=== PATIENT | male | born 1965 | race Two or more races ===

== ENCOUNTER 2018-06-25 07:26 | Day surgery (SDC) | payer OTHER ==
[2018-06-25] VITALS (8 sets, daily range): BP systolic 109–126; BP diastolic 76–88
[~2018-06-25] VITALS: Ht 167.6 cm; Wt 95.3 kg
--- NOTE | 2018-06-25 06:47 | Anethesia Preoperative Eval ---
Anesthesia Pre-op PMH/ROS General Date of Evaluation: Jun 25, 2018 Time of Evaluation: 06:44 Anesthesiologist: destiny ASA Score: ASA 3 Mallampati Score Class I : Soft palate, uvula, fauces, pillars visible Class II: Soft palate, uvula, fauces visible Class III: Soft palate, base of uvula visible Class IV: Only hard plate visible Mallampati Classification: Class II Surgeon: rubina Diagnosis: gerd Surgical Procedure: egd Anesthesia History: none Social History: current smoker Family History: no anesthesia problems Allergies: Coded Allergies: No Known Allergies (Unverified , 06/25/18) Medications: see eMAR Patient NPO?: Yes Past Medical History Cardiovascular: Reports: HTN Gastrointestinal/Genitourinary: Reports: GERD Neurologic/Psychiatric: Reports: other - headache HEENT: Reports: other - multiple dental implants Musculoskeletal/Integumentary: Reports: other - work related back injury Other: obesity PSxH Narrative: cervical fusion, lumbar spine sx, Anesthesia Pre-op Phys. Exam Physician Exam Last Vital Signs Date Time Temp Pulse Resp B/P (MAP) Pulse Ox O2 Delivery O2 Flow Rate FiO2 06/25/18 08:07 Room Air 06/25/18 08:05 97.0 59 18 120/79 100 Constitutional: NAD Neurologic: CN 2-12 intact Cardiovascular: RRR Respiratory: CTA Gastrointestinal: S/NT/ND Airway Exam Mallampati Score: Class II MO: full Neck: supple TMD: 2fb ROM: full Teeth: missing Anesthesia Pre-op A/P Risk Assessment & Plan Assessment: asa3 Plan: mac Status Change Before Surgery: No Pre-Antibiotics Drug: Tyesha Frazier MD Jun 25, 2018 06:47
[~2018-06-25 07:26] MED LIST: Atropine Inj 1mg/10ml Syr IV PRN; DiphenhydrAMINE 50mg/ml Inj IVP PRN; GABAPENTIN300 MG ORAL; LR 1000ml 1,000 ML IVLG SCH; Midazolam 2mg/2ml Inj IVP PRN; TYLENOL EXTRA500 MG ORAL; fentaNYL 100 mcg/2 mL IV PRN
--- NOTE | 2018-06-25 08:56 | Short Stay Surgery H&P ---
History of Present Illness History of Present Illness Chief Complaint Heartburn and abdominal pains HPI Yon Roth is a 52 year old male who was admitted on for GERD/ abdominal pains Patient History Allergies: Coded Allergies: No Known Allergies (Unverified , 06/25/18) PAST MEDICAL HISTORY: (1) Hypertension (2) Hyperlipidemia (3) S/P discectomy (4) S/P cervical discectomy (5) S/P lumbar discectomy (6) S/P disc Medication History Scheduled PRN Acetaminophen* (Tylenol Extra Strength*), 500 MG ORAL Q6H PRN for Mild Pain/ Temp > 100.5, (Reported) Gabapentin* (Gabapentin*), 300 MG ORAL THREE TIMES A DAY PRN for For Pain, ( Reported) Review of Systems Cardiovascular: Reports: no symptoms Respiratory: Reports: no symptoms Skeletal: Reports: spinal disc disease, trauma Gastrointestinal: Reports: gastro esophageal reflux disease Genitourinary: Reports: no symptoms Neurologic: Reports: no symptoms Endocrine: Reports: no symptoms Hematologic: Reports: no symptoms Physical Exam Vital Signs Last Vital Signs Date Time Temp Pulse Resp B/P (MAP) Pulse Ox O2 Delivery O2 Flow Rate FiO2 06/25/18 08:07 Room Air 06/25/18 08:05 97.0 59 18 120/79 100 Skin: normal HENT: normal Heart: normal Lungs: normal Abdomen: abnormal Extremities: normal Genitourinary: normal Plan Plan of Care Upper GI endoscopy and biopsy Preop Interventions None Summary of Findings See the reports Attestation Are the patient's medical conditions optimized for surgery? Attestation Response: yes Yvon Johnson MD Jun 25, 2018 08:56
--- NOTE | 2018-06-25 08:57 | Pre-Procedure Note/Attestation ---
Pre-Procedure Note/Attestation Complete Prior to Procedure Planned Procedure: left Procedure Narrative: Examination of ghe upper GI tract by endoscope Indications for Procedure Pre-Operative Diagnosis: R/O Peptic ulcer/Gastritis Attestation I attest that I discussed the nature of the procedure; its benefits; risks and complications; and alternatives (and the risks and benefits of such alternatives ), prior to the procedure, with the patient (or the patient's legal branch sales and service representative). I attest that, if there was a reasonable possibility of needing a blood transfusion, the patient (or the patient's legal branch sales and service representative) was given the [facility] standardized written summary, pursuant to the [place] Blood Safety Act ([place] Health and Safety Code # 1645, as amended). I attest that I re-evaluated the patient just prior to the surgery and that there has been no change in the patient's H&P, except as documented below: Yvon Johnson MD Jun 25, 2018 08:57
--- NOTE | 2018-06-25 09:08 | Endoscopy Procedure Note ---
Endoscopy Procedure Note General Indication for Procedure: Abdominal pains/GERD Procedures Performed: EGD - Completely normal upper GI. endoscopy. Biopsy obtained per random from gastric body. Specimen: yes Pt Tolerated Procedure Well: Yes Estimated Blood Loss: none Anesthesia Anesthesiologist: Dr. Sosa Anesthesia: moderate sedation Medications Medication Given: see anesthesia record Inserted Devices Implant(s) used?: No Quality Quality of Bowel Preparation: Excellent Was there any complications?: No GI Core Measures 50 yrs or older w/o bx or poly: Not Applicable 10yrs. F/U not recommended: Not Applicable If not recommended, why?: Med reason:<3 yrs.: System Reason:<3 yrs.: Yvon Johnson MD Jun 25, 2018 09:08
--- NOTE | 2018-06-25 09:09 | Discharge Instructions ---
Discharge Instructions Discharge Instructions Follow up with: See the doctor in [facility] after 2 weeks For Congestive Heart Failure Reminder Report to your physician any weight gain of 5 pounds or more in one week. Yvon Johnson MD Jun 25, 2018 09:09
--- NOTE | 2018-06-25 09:23 | Immediate Post-Op Evaluation ---
Immediate Post-Op Evalulation Immediate Post-Op Evalulation Procedure: egd w/bx Date of Evaluation: Jun 25, 2018 Time of Evaluation: 09:22 IV Fluids: 150ml lr Blood Products: none Estimated Blood Loss: negligible Blood Pressure Systolic: 115 Blood Pressure Diastolic: 76 Pulse Rate: 65 Respiratory Rate: 18 O2 Sat by Pulse Oximetry: 100 Temperature (Fahrenheit): 97.0 Pain Score (1-10): 0 Nausea: No Vomiting: No Complications none Patient Status: awake, reacts, patent Hydration Status: adequate Drug: Tyesha Frazier MD Jun 25, 2018 09:23
--- NOTE | 2018-06-25 09:25 | 48 Hour Post Anesthesia Eval ---
Post Anesthesia Evaluation Procedure: egd w/bx Date of Evaluation: Jun 25, 2018 Time of Evaluation: 09:24 Blood Pressure Systolic: 120 0: 75 Pulse Rate: 68 Respiratory Rate: 18 Temperature (Fahrenheit): 97.0 O2 Sat by Pulse Oximetry: 100 Airway: patent Nausea: No Vomiting: No Pain Intensity: 0 Hydration Status: adequate Cardiopulmonary Status: stable Mental Status/LOC: patient returned to baseline Post-Anesthesia Complications: none Follow-up care needed: N/A Tyesha Carpenter MD Jun 25, 2018 09:25
--- NOTE | 2018-06-25 20:15 | History and Physical Report ---
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 He is being seen prior to undergoing the upper GI endoscopy for which he has been scheduled to receive for evaluation of his abdominal pain that he has been complaining of subsequent to his work injury. The patient had to be seen at this time, who basically came out for performance of upper GI endoscopy, which requires anesthesia. 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 The patient, at this time, reports that he is experiencing pain and discomfort over the epigastric area, particularly after consumption of spicy foods. These pains are intermittent in nature and sometime, they radiate toward his chest area. There has been no history of diarrhea or constipation. No particular dysphagia etc. In the past, he has been taking medications of PPI nature such as omeprazole along with Pepcid, which is an H2 chico. This was somewhat helpful and most of the time basically covered his symptoms. However, he still continues to have the same symptoms as he also has lost approximately 10 pounds. He denies any upper GI bleeding such as hematemesis or lower GI bleeding such as melena, hematochezia, etc. It is important to mention that the applicant has had history of taking nonsteroidal anti-inflammatory agents such as ibuprofen and Motrin for a long period of time subsequent to his work injury and subsequent to which also, he has started to experience the GI symptoms raising the question of possibly NSAID-induced gastropathy or peptic ulcer disease. PAST MEDICAL HISTORY: Basically, he has been diagnosed to have high cholesterol and hypertension for which he has been receiving some medications in the past. SURGERIES: Dorsolumbar disk disease in 2017 and diskectomy. MEDICATIONS: Currently, ibuprofen mg daily and gabapentin 400 mg. ALLERGIES: None significant. FAMILY HISTORY: None significant. The mother has had Alzheimer disease and the father did have diabetes mellitus. HABITS: The applicant denies drinking alcohol, but smokes cigarettes. REVIEW OF SYSTEMS: Basically history of present illness. The patient denies having any chest pain, shortness of breath, or cough. There has been no history of dysuria, pyuria, or hematuria. The only problem also as he is complaining of pain over the lower back area as I mentioned. PHYSICAL EXAMINATION: GENERAL: Reveals alert and well-oriented gentleman, does not seem to be in any acute distress. He looks well developed and nourished. VITAL SIGNS: All stable. HEENT: Normocephalic. Pupils equal in size and reactive to light and accommodation. No visible jaundice. Buccal cavity, tongue midline, well hydrated. No ulcers. NECK: Supple. No JVD, thyromegaly, or adenopathy. CHEST: Clear to auscultation and percussion. No rales or rhonchi. HEART: S1, S2 normal. Regular rhythm. No gallops or murmur. ABDOMEN: Soft, but somewhat tender over the epigastric area, but no palpable mass noted and there is no hepatosplenomegaly. Bowel sounds are present. EXTREMITIES: Within normal limits. No pretibial edema, cyanosis, or clubbing and is grossly normal. PREOPERATIVE INITIAL DIAGNOSES: 1. Epigastric pain of uncertain etiology, rule out NSAID-induced gastropathy, peptic ulcer disease, gastritis, and esophagitis. 2. History of bodily injury, work related. 3. Hypertension and hyperlipidemia, stable. 4. Anxiety and depression. RECOMMENDATIONS: The applicant at this time seems to be quite stable to undergo the procedure of upper GI endoscopy for which he has been scheduled for. He understands the risks and benefits and signed the consent for this procedure. Said Angeline Johnson DR: TOYA JOB#: [id number] CC:
--- NOTE | 2018-06-25 20:15 | Procedure Note ---
DATE OF PROCEDURE: 06/25/2018 SURGEON: Yvon Johnson M.D. PROCEDURE: Esophagogastroduodenoscopy with biopsy. INDICATION FOR PROCEDURE: Abdominal pain and epigastric pain. POSTOPERATIVE DIAGNOSIS: Completely normal upper GI endoscopy. Biopsy was taken per random from gastric body. ANESTHESIA: Per Dr. Sosa, anesthesiologist. INSTRUMENT: GIF Olympus upper GI video endoscope. DESCRIPTION OF PROCEDURE: The patient after arriving endoscopy unit, was told about risks and benefits of the procedure which he accepted and signed informed consent. At this time, the patient was put on the left lateral decubitus position and the scope was gently passed through the cricopharyngeal area, was lodged into the upper esophagus and gradually advanced towards gastroesophageal junction. The entire length of the esophagus looked normal and there was no any evidence of varices, inflammatory process, ulceration, stricture etc. GE junction also looked normal without any evidence of Wallace's or hiatal hernia. At this time, the scope was advanced into the stomach, gastric cavity was distended with insufflation of air, and gradually the areas of the fundus and the body and the antrum were examined in a closer fashion, which revealed normal finding without any evidence of inflammatory process, ulceration, polyps, tumors, bleeding, etc. The gastric mucosa looked completely normal. The retroflexion maneuver was also applied in the area of the fundus and there was no other pathology found in this area in a retrograde fashion. At this point, one random biopsy from midgastric body obtained and subsequently the scope was passed through normal looking antrum introduced into the pylorus. First and second portion of duodenum were also found to be completely normal. Finally, the scope was pulled out and procedure was terminated. The patient tolerated the procedure well and left the endoscopy room in a good condition. Yvon Johnson M.D. DR: Phan JOB#: [id number] CC:
== END 2018-06-25 10:10 | disposition home or self-care (01) ==
LOC: GAS 07:26 → EDUNIT# 12:00
DX: K29.50 Unspecified chronic gastritis without bleeding (principal); K21.9 Gastro-esophageal reflux disease without esophagitis; I10 Essential (primary) hypertension; E78.5 Hyperlipidemia, unspecified; E66.9 Obesity, unspecified; F41.9 Anxiety disorder, unspecified; F32.9 Major depressive disorder, single episode, unspecified
CPT/HCPCS: 94003; 94150